=== PATIENT | male | born 1950 | race Caucasian/White ===

== ENCOUNTER 2022-07-19 15:32 | Outpatient (CLI) | payer MEDICARE ==
--- NOTE | 2022-07-19 16:17 | XRAY Report ---
PROCEDURE: Chest 2 View X-Ray INDICATIONS: MO TECHNIQUE: 2 views of the chest were acquired. COMPARISON: None. FINDINGS: Surgical changes and devices: None. Lungs and pleura: No pleural effusions or pneumothorax. Lungs are clear. COPD Mediastinum: Mediastinal contours are normal. Heart size is normal. Bones and chest wall: No suspicious bony abnormalities. Soft tissues appear unremarkable. IMPRESSION: No acute cardiopulmonary disease process. Reviewed by: Lucía Shah MD, PhD on 07/19/2022 4:16 PM PST Approved by: Lucía Shah MD, PhD on 07/19/2022 4:16 PM PST Station ID: [id number]
== END 2022-07-19 15:33 | disposition home or self-care (01) ==
LOC: DI 15:32
PROVIDERS: ATTEND Internal Medicine
DX: R06.09 Other forms of dyspnea (principal)

== ENCOUNTER 2022-08-12 13:57 | Emergency (ER) | payer MEDICARE ==
--- NOTE | 2022-08-12 14:31 | XRAY Report ---
PROCEDURE: Chest 1 View X-Ray INDICATIONS: Chest pain TECHNIQUE: One view of the chest was acquired. COMPARISON: Chest x-ray 07/19/2022 FINDINGS: Surgical changes and devices: None. Lungs and pleura: Lungs are hyperexpanded suggestive COPD. There is minimal blunting the costophreni c angles, unchanged likely related to scarring. Flattening of the hemidiaphragms are present bilatera lly. Mediastinum: Mediastinal contours appear normal. Heart size is normal. Bones and chest wall: No suspicious bony lesions. Overlying soft tissues appear unremarkable. IMPRESSION: No acute pulmonary process. Reviewed by: Cheyenne Hernandez MD on 08/12/2022 2:29 PM PDT Approved by: Cheyenne Hernandez MD on 08/12/2022 2:29 PM PDT Station ID: [id number]
[2022-08-12 14:52] LABS: BASOPHILS % (AUTO) 0.3 %; EOSINOPHILS % (AUTO) 0.3 %; HCT - HEMATOCRIT 46.2 % (42.0-52.0); HGB - HEMOGLOBIN 15.1 g/dL (14.0-18.0); LYMPHOCYTES # (AUTO) 0.6 10^3/uL (1.5-3.5); LYMPHOCYTES % (AUTO) 5.4 %; MEAN CORPUSCULAR HEMOGLOBIN 31.5 pg (27.0-31.0); MEAN CORPUSCULAR HGB CONC 32.7 g/dL (32.0-36.0); MEAN CORPUSCULAR VOLUME 96.3 fL (80.0-94.0); MEAN PLATELET VOLUME 9.1 fL (7.4-11.4); MONOCYTES # (AUTO) 0.8 10^3/uL (0.0-1.0); MONOCYTES % (AUTO) 6.5 %; NEUTROPHILS # (AUTO) 10.4 10^3/uL (1.5-6.6); NEUTROPHILS % (AUTO) 87.1 %; PLT - PLATELET COUNT 190 10^3/uL (130-450); RED CELL DISTRIBUTION WIDTH 12.4 % (12.0-15.0); WHITE BLOOD COUNT 11.9 x10^3/uL (4.8-10.8)
[2022-08-12 15:10] LABS: ALBUMIN 4.2 g/dL (3.2-5.5); ALBUMIN/GLOBULIN RATIO 1.4 (1.0-2.2); BILIRUBIN,TOTAL 2.7 mg/dL (0.2-1.0); CREATININE 0.9 mg/dL (0.6-1.2); POTASSIUM 4.3 mmol/L (3.5-5.0); TOTAL PROTEIN 7.1 g/dL (6.7-8.2)
--- NOTE | 2022-08-12 15:31 | ED Physician Documentation ---
History of Present Illness - Stated complaint Stated Complaint: CP/FEVER/NAUSEA - Chief complaint Chief Complaint: Cardiac - Additonal information Additional information: 72-year-old male comes to the emergency department for evaluation of fever up to 102 as well as nonradiating substernal chest pain and pressure that woke him up at 4 AM. He reports he is generally very healthy and active but today has felt like it is difficult to take a deep breath and sometimes it hurts. No history of hypertension or tobacco use. He does have a history of asthma for which he is on fluticasone. Rarely uses his albuterol. Also has a history of hyperlipidemia for which she is on lovastatin. Followed by Dr. Jd Lopez. He denies nausea or vomiting. Though he has had lack of appetite. No abdominal pain diarrhea or urinary symptoms. Review of Systems Constitutional: reports: Fever, Myalgias Eyes: reports: Reviewed and negative Cardiac: reports: Chest pain / pressure. denies: Palpitations, Pedal edema, Calf pain Respiratory: reports: Dyspnea GI: reports: Reviewed and negative : reports: Reviewed and negative Skin: reports: Reviewed and negative PD PAST MEDICAL HISTORY - Present Medications Home Medications: Ambulatory Orders Medication Instructions Recorded Confirmed Amox/Clav 875/125 [Augmentin] 1 each PO Q12H #14 tablet 08/12/22 Azithromycin [Zithromax] 0 mg PO DAILY #6 tablet 08/12/22 - Allergies Allergies/Adverse Reactions: Allergies Allergy/AdvReac Type Severity Reaction Status Date / Time No Known Drug Allergies Allergy Verified 08/12/22 14:19 PD ED PE NORMAL - General General: Alert and oriented X 3, No acute distress, Well developed/nourished - HEENT HEENT: Atraumatic, Moist mucous membranes - Neck Neck: Supple, no meningeal sign, No adenopathy - Cardiac Cardiac: RRR, No murmur, Strong equal pulses - Respiratory Respiratory: No respiratory distress, Clear bilaterally - Abdomen Abdomen: Normal bowel sounds, Soft - Back Back: No CVA TTP, No spinal TTP - Derm Derm: Normal color, Warm and dry, No rash - Extremities Extremities: No deformity, No tenderness to palpate, Normal ROM s pain - Neuro Neuro: Alert and oriented X 3, 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 Relevant findings are: Rate: Rate (enter#) (92) Rhythm: NSR [facility]: Normal Intervals: Normal TN. No: Prolonged QT QRS: Low voltage Ischemia: T wave inversion (V1-V2) Compare to prior EKG: Old EKG unavailable Computer interpretation: Agree with computer - Labs Labs: Laboratory Tests 08/12/22 08/12/22 08/12/22 14:45 14:45 14:45 WBC 11.9 H RBC 4.80 Hgb 15.1 Hct 46.2 MCV 96.3 H MCH 31.5 H MCHC 32.7 RDW 12.4 Plt Count 190 MPV 9.1 Neut # (Auto) 10.4 H Lymph # (Auto) 0.6 L [place] # (Auto) 0.8 Eos # (Auto) 0.0 Baso # (Auto) 0.0 Absolute Nucleated RBC 0.00 Nucleated RBC % 0.0 Sodium 135 Potassium 4.3 Chloride 101 Carbon Dioxide 26 Anion Gap 8.0 BUN 15 Creatinine 0.9 Estimated GFR (MDRD) 82 L Glucose 104 H Calcium 9.0 Total Bilirubin 2.7 H AST 27 ALT 26 Alkaline Phosphatase 64 Troponin I High Sens 4.9 Total Protein 7.1 Albumin 4.2 Globulin 2.9 Albumin/Globulin Ratio 1.4 Lipase 29 Nasal Adenovirus (PCR) Nasal B. parapertussis DNA (PCR) Nasal Coronavir 229E PCR Nasal Coronavir HKU1 PCR Nasal Coronavir NL63 PCR Nasal Coronavir OC43 PCR Nasal Enterovir/Rhinovir PCR Nasal Influenza B PCR Nasal Influenza A PCR Nasal Parainfluen 1 PCR Nasal Parainfluen 2 PCR Nasal Parainfluen 3 PCR Nasal Parainfluen 4 PCR Nasal RSV (PCR) Nasal B.pertussis DNA PCR Nasal C.pneumoniae (PCR) Javi Human Metapneumo PCR Nasal M.pneumoniae (PCR) Nasal SARS-CoV-2 (PCR) 08/12/22 15:30 WBC RBC Hgb Hct MCV MCH MCHC RDW Plt Count MPV Neut # (Auto) Lymph # (Auto) [place] # (Auto) Eos # (Auto) Baso # (Auto) Absolute Nucleated RBC Nucleated RBC % Sodium Potassium Chloride Carbon Dioxide Anion Gap BUN Creatinine Estimated GFR (MDRD) Glucose Calcium Total Bilirubin AST ALT Alkaline Phosphatase Troponin I High Sens Total Protein Albumin Globulin Albumin/Globulin Ratio Lipase Nasal Adenovirus (PCR) NOT DETECTED Nasal B. parapertussis DNA (PCR) NOT DETECTED Nasal Coronavir 229E PCR NOT DETECTED Nasal Coronavir HKU1 PCR NOT DETECTED Nasal Coronavir NL63 PCR NOT DETECTED Nasal Coronavir OC43 PCR NOT DETECTED Nasal Enterovir/Rhinovir PCR NOT DETECTED Nasal Influenza B PCR NOT DETECTED Nasal Influenza A PCR NOT DETECTED Nasal Parainfluen 1 PCR NOT DETECTED Nasal Parainfluen 2 PCR NOT DETECTED Nasal Parainfluen 3 PCR NOT DETECTED Nasal Parainfluen 4 PCR NOT DETECTED Nasal RSV (PCR) NOT DETECTED Nasal B.pertussis DNA PCR NOT DETECTED Nasal C.pneumoniae (PCR) NOT DETECTED Javi Human Metapneumo PCR NOT DETECTED Nasal M.pneumoniae (PCR) NOT DETECTED Nasal SARS-CoV-2 (PCR) NOT DETECTED - Rads (name of study) cxr Relevant Findings:: Final report received (No acute cardiopulmonary process) PD Medical Decision Making - ED course Complexity details: reviewed results, re-evaluated patient, considered differential, d/w patient ED course: 72-year-old male who has a past medical history most significant for hypertension, asthma and hyperlipidemia presents to the emergency department for evaluation of fever up to 102 and left-sided substernal chest pain and pressure that woke him from sleep at 4 AM. No history of similar. He denies any cough. No recent travel. Here in the emergency department he presents very well-appearing with unremarkable cardiopulmonary auscultation. No hypoxia. Chest x-ray is interpreted by both the radiologist myself shows no acute cardiopulmonary findings. An EKG is interpreted by myself also shows no ischemic findings and initial troponin is negative. Given that the duration of the symptoms is more than 12 hours. This is not likely acute coronary syndrome. Did obtain a CBC and electrolytes and per my interpretation no acute worrisome findings. WBC 11.9; non-specific in this setting. t-bili is 2.5. Patient reports he has been told he has an elevated bilirubin in the past but is unsure if he has Renteria Bears disease. No abdominal tenderness was elicited we will defer imaging of the abdomen at this time. Respiratory PCR panel was also negative. However given the fever I am clinically concerned For subclinical PE or even pneumonia given the lack of chest x-ray findings thus I did complete a CT pulmonary angiogram. The PE E study was negative for pulmonary embolism however it does show an unexpected finding of left upper lobe groundglass opacity most likely consistent with infection. Given this I discussed with the patient and his routine outpatient treatment for community-acquired pneumonia. Theref ore he will be started on Augmentin and azithromycin. Patient's curb 65 score is low making him appropriate for outpatient treatment. There was an incidental finding of a right upper lobe pulmonary nodule. This was also discussed with patient and his . They are recommended to have interval CT follow-up in 6 to 12 months for reevaluation. Patient is are discharged home in stable condition with the usual routine emergent return return precautions discussed Departure - Departure Disposition: 01 Home, Self Care Clinical Impression: Right upper lobe pulmonary nodule Left upper lobe pneumonia Qualifiers: Pneumonia type: due to unspecified organism Qualified Code(s): J18.9 - Pneumonia, unspecified organism Condition: Stable Record reviewed to determine appropriate education?: Yes Instructions: ED Pneumonia Adult Prescriptions: Amox/Clav 875/125 [Augmentin] 1 each PO Q12H #14 tablet Azithromycin [Zithromax] 0 mg PO DAILY #6 tablet Comments: Jorje landers came to the emergency department today because you woke up about 4 AM with left-sided substernal chest pain and pressure. He also had a fever up to 102. The EKG completed today in the emergency department does not show signs of a heart attack. Your labs were also essentially normal. However with the reported fever we did obtain a CT of your chest and do find that there is a left upper lobe groundglass opacity. This is most likely an early pneumonia. In order to treat this I would like you to fill the prescription for the antibiotics and take as directed for the next week. There was an incidental finding made of a right upper lobe pulmonary nodule. These are very common findings in the emergency department and are typically benign. Please discuss this with your primary care provider. You should have a repeat CT scan in 6 to 12 months to ensure stability. Return to the ER if you find you are having worsening symptoms, uncontrolled fevers difficulty breathing any bloody sputum, chest pain or fainting episodes
[2022-08-12] MEDS ORDERED: SODIUM CHLORIDE 0.9% 1,000 ML IV STA (15:44)
[2022-08-12 16:33] LABS: B. PARAPERTUSSIS- RESP PCR PAN NOT DETECTED; B. PERTUSSIS- RESP PCR PANEL NOT DETECTED; C. PNEUMONIAE- RESP PCR PANEL NOT DETECTED; CORONAVIRUS 229E-RESP PCR NOT DETECTED; CORONAVIRUS HKU1-RESP PCR NOT DETECTED; CORONAVIRUS NL63-RESP PCR NOT DETECTED; CORONAVIRUS OC43-RESP PCR NOT DETECTED; HUMAN METAPNEUMOVIRUS NOT DETECTED; INFLUENZA A- RESP PCR PANEL NOT DETECTED; INFLUENZA B - RESP PCR PANEL NOT DETECTED; M. PNEUMONIAE- RESP PCR PANEL NOT DETECTED; PARAINFLUENZA VIRUS 1 NOT DETECTED; PARAINFLUENZA VIRUS 2 NOT DETECTED; PARAINFLUENZA VIRUS 3 NOT DETECTED; PARAINFLUENZA VIRUS 4 NOT DETECTED; RHINOVIRUS/ENTEROVIRUS NOT DETECTED; RSV- RESP PCR PANEL NOT DETECTED; SARS-CoV-2 -RESP PCR PANEL NOT DETECTED
[2022-08-12] MEDS ORDERED: iohexoL-300 100 ML VIAL ONE (16:54)
--- NOTE | 2022-08-12 17:34 | CT Report ---
PROCEDURE: ANGIO CHEST W/WO INDICATIONS: chest pain, fever; ? PE CONTRAST: 1 TECHNIQUE: After the administration of intravenous contrast, 2 mm axial images were acquired from the pulmonary apices to the posterior costophrenic angles during the arterial phase. In addition, 1 mm lung kernel and 5 mm soft tissue kernel reconstructions were performed. 3-dimensional coronal oblique maximum int ensity projection (MIP) reformats, 8 mm axial MIP, and 5 mm coronal and sagittal MPR reformats were t hen performed through the thorax. For radiation dose reduction, the following was used: automated exp osure control, adjustment of mA and/or kV according to patient size. COMPARISON: Chest x-ray 08/12/2022 FINDINGS: Image quality: Excellent. Pulmonary arteries: Pulmonary arteries are normal in size, and demonstrate no intraluminal filling d efects to suggest central pulmonary embolism. Lungs and pleura: Lungs are hyperinflated suggestive of COPD. There is a focus of groundglass opacity identified in the left upper lobe measuring 4.3 x 3.0 cm. Right upper lobe nodule is present measuri ng 6 mm. Mediastinum: Heart size is normal, without pericardial effusion. No mediastinal or hilar a denopathy. Thoracic aorta is normal in caliber and enhancement. Esophagus is normal in caliber, wit hout hiatal hernia. Bones and chest wall: No suspicious bony lesions. Ribs and thoracic spine appear intact throughout. No axillary or supraclavicular adenopathy. The thyroid is normal in size and there are no incident al findings. Abdomen: Visualized upper abdominal solid organs appear normal in the early arterial phase of enhanc ement. IMPRESSION: No pulmonary embolism. Groundglass opacity in the left upper lobe suggestive of infection or inflammation. No priors are gisele ilable for comparison. Short interval imaging follow-up is recommended to document resolution and exc lude presence of underlying malignancy. Nonspecific 5 mm nodule in the right upper lobe. Recommend attention to this region on follow-up exam for above described round glass nodule. CLINICAL RECOMMENDATION STATEMENTS: In patients <35 years with an ITN detected on CT, MRI, or extrathyroidal ultrasound, the Committee re commends further evaluation with dedicated thyroid ultrasound if the nodule is "e1 cm and has no susp icious imaging features, and if the patient has normal life expectancy. In patients "e35 years with an ITN detected on CT, MRI, or extrathyroidal ultrasound, the Committee r ecommends further evaluation with dedicated thyroid ultrasound if the nodule is "e1.5 cm and has no s uspicious imaging features, and if the patient has normal life expectancy. (ACR, 2014) Reviewed by: Cheyenne Hernandez MD on 08/12/2022 5:33 PM PDT Approved by: Cheyenne Hernandez MD on 08/12/2022 5:33 PM PDT Station ID: [id number]
[2022-08-12 17:50] VITALS: BP 131/74
[2022-08-12] MEDS ORDERED: AMOX/CLAV 875 MG/125 MG TABLET PO STA (17:50)
[2022-08-12] MEDS ORDERED: AZITHROMYCIN 250 MG TABLET PO STA (17:51)
[2022-08-12] MEDS ORDERED: iohexoL-300 100 ML VIAL IVP ONE (19:00)
== END 2022-08-12 18:06 | disposition home or self-care (01) ==
LOC: ED 13:57
DX: J18.9 Pneumonia, unspecified organism (principal); R91.1 Solitary pulmonary nodule; E78.5 Hyperlipidemia, unspecified; Z20.822 Contact with and (suspected) exposure to COVID-19; Z79.899 Other long term (current) drug therapy
CPT/HCPCS: 36415; 71045; 71275; 80053; 83690; 84484; 85025; 87633; 93005; 99284; A9270; Q9967

== ENCOUNTER 2022-08-17 06:59 | Emergency (ER) | payer MEDICARE ==
[2022-08-17] MEDS ORDERED: SODIUM CHLORIDE 0.9% 1,000 ML IV STA (08:18)
[2022-08-17] MEDS ORDERED: KETOROLAC 30 MG/ML VIAL IVP STA (08:19)
[2022-08-17] MEDS ORDERED: DEXAMETHASONE 10 MG/ML VIAL IV STA (08:20)
[2022-08-17] MEDS ORDERED: ACETAMINOPHEN 325 MG TABLET PO STA (08:20)
[2022-08-17] MEDS ORDERED: IPRATROPIUM/ALBUTEROL 3 ML NEB INH STA (08:20)
--- NOTE | 2022-08-17 08:25 | ED Physician Documentation ---
History of Present Illness - Stated complaint Stated Complaint: COUGHING UP BLOOD/CHEST PX - Chief complaint Chief Complaint: Resp - History obtained from History obtained from: Patient, Family - Additonal information Additional information: The patient comes to the emergency department with chief complaint Of worsening chest pain and cough since yesterday. The patient states that he was seen about 5 days ago in emergency department and diagnosed with pneumonia. He states that he felt as though he was slowly improving between the antibiotics and using his albuterol inhaler and had improved to the point where he felt he did not need his inhaler anymore. However, yesterday around noon, he began to notice the development of a pain under his left breast area and this slowly increased to a sharp pain that is worse when he takes a deep breath. He states that since the pain started, it has begun to encompass a wider [place] around his breast and wraparound into his posterior left chest. He denies any recurrence of fever though he states his temperature is still 99, which is abnormal for him. The patient states that his cough seems a little worse and that he has coughed up some blood-tinged material couple of times. The patient states that he has not had any nausea or vomiting except for the first day he was started on antibiotics, when he vomited several hours after taking the antibiotics. He did try his inhaler again last night around 1:00 and states it actually helped him feel quite a bit better and that he had a better night sleep after that. No other complaints at this time. He does take Wixela for maintenance of his asthma. I did review his records and found that he had been worked up extensively with blood work, which showed a mildly elevated white blood cell count, chest x-ray which was negative, and a CTA of the chest, which showed a focal area of groundglass appearance in the left upper lobe. His respiratory PCR panel was negative. He was started on Augmentin and Zithromax, and given first doses in the emergency department. PD PAST MEDICAL HISTORY - Present Medications Home Medications: Ambulatory Orders Medication Instructions Recorded Confirmed Amox/Clav 875/125 [Augmentin] 1 each PO Q12H #14 tablet 08/12/22 08/17/22 Azithromycin [Zithromax] 0 mg PO DAILY #6 tablet 08/12/22 08/17/22 Fluticasone Propion/Salmeterol 1 inh INH DAILY 08/17/22 08/17/22 [Wixela 250-50 Inhub] Rosuvastatin Calcium [Crestor] 20 mg PO DAILY 08/17/22 08/17/22 - Allergies Allergies/Adverse Reactions: Allergies Allergy/AdvReac Type Severity Reaction Status Date / Time No Known Drug Allergies Allergy Verified 08/17/22 07:23 PD ED PE NORMAL - Vitals Vital signs reviewed: Yes - General General: Alert and oriented X 3, No acute distress, Well developed/nourished - HEENT HEENT: Atraumatic, PERRL, EOMI, Moist mucous membranes - Neck Neck: Supple, no meningeal sign - Cardiac Cardiac: RRR, No murmur, Strong equal pulses - Respiratory Respiratory: No respiratory distress, Clear bilaterally - Abdomen Abdomen: Soft, Non tender, Non distended - Derm Derm: Normal color, Warm and dry, No rash - Extremities Extremities: No deformity, No edema - Neuro Neuro: Alert and oriented X 3 - Psych Psych: Normal mood, Normal affect Results - Vitals Vitals: Oxygen O2 Source Room air - Labs Labs: Laboratory Tests 08/17/22 08/17/22 08/17/22 08:30 08:30 08:30 WBC 11.0 H RBC 4.57 L Hgb 14.2 Hct 43.1 MCV 94.3 H MCH 31.1 H MCHC 32.9 RDW 12.9 Plt Count 261 MPV 9.4 Neut # (Auto) 8.5 H Lymph # (Auto) 0.8 L [place] # (Auto) 1.3 H Eos # (Auto) 0.1 Baso # (Auto) 0.1 Absolute Nucleated RBC 0.00 Nucleated RBC % 0.0 Sodium 136 Potassium 3.8 Chloride 98 L Carbon Dioxide 27 Anion Gap 11.0 BUN 12 Creatinine 0.8 Estimated GFR (MDRD) 94 Glucose 127 H Lactic Acid 1.4 Calcium 8.6 Total Bilirubin 1.4 H AST 17 ALT 24 Alkaline Phosphatase 108 Total Protein 7.2 Albumin 3.0 L Globulin 4.2 Albumin/Globulin Ratio 0.7 L Lipase 25 - Rads (name of study) CXR Relevant Findings:: Final report received, See rad report (no significant change from prior study.) CT chest contrast Relevant Findings:: Final report received, See rad report (worsening cavitary lesion THA, worsening LLL infiltrate) PD Medical Decision Making - ED course Complexity details: reviewed old records, reviewed results, re-evaluated patient, considered differential, d/w patient, d/w family ED course: The pt was stable, but appeared uncomfortable and mildly dyspneic. This was reported to be a worsening, despite several days of abx, and I was concerned about this. He was worked up with CBC and ER abd panel, which were ordered and reviewed by me, and showed improvement in the WBC count to 11.0. However, the CXR looked worse on my eval, despite being read as unchanged. Given this and pt's worsening condition, I felt the pt should be evaluated with CT. This was done and showed a worsening of the cavitary lesion and pneumonia. I spoke with Dr. Matthews of infectious disease at [facility], and she was concerned about the cavitary lesion. As the pt is stable, she would like to have him come straight to her office for an evaluation at 1600, and she will decide if he can continue outpatient treatment or needs inpatient. I discussed this with the pt, who is feeling quite a bit better now, and he and his are agreeable to the plan. He has been given the address for the clinic. Departure - Departure Disposition: 01 Home, Self Care Clinical Impression: Cavitary pneumonia Condition: Stable Instructions: ED Pneumonia Adult Comments: Your CT scan shows significant worsening of your pneumonia since Monday. Given that you have been on a nearly full course of azithromycin and have a course of Augmentin, it is concerning that you have had this acute worsening. As such, your case has been discussed with Dr. Matthews, who is an infectious disease specialist over at [facility]. Given the morphology of your pneumonia, as well as the worsening despite an antibiotic regimen that should usually successfully treat pneumonia, she would like to see you urgently. She has requested that you come to her clinic this afternoon for a 4:00 appointment. Her clinic is located right across the street from [facility], at [address] [facility] in [place]. The number for the clinic is [phone]. Please let them know that you are there for a 4:[address] Matthews. Discharge Date/Time: 08/17/22 14:34
[2022-08-17 08:36] LABS: BASOPHILS # (AUTO) 0.1 10^3/uL (0.0-0.1); BASOPHILS % (AUTO) 0.9 %; EOSINOPHILS # (AUTO) 0.1 10^3/uL (0.0-0.7); EOSINOPHILS % (AUTO) 0.5 %; HCT - HEMATOCRIT 43.1 % (42.0-52.0); HGB - HEMOGLOBIN 14.2 g/dL (14.0-18.0); LYMPHOCYTES # (AUTO) 0.8 10^3/uL (1.5-3.5); LYMPHOCYTES % (AUTO) 7.5 %; MEAN CORPUSCULAR HEMOGLOBIN 31.1 pg (27.0-31.0); MEAN CORPUSCULAR HGB CONC 32.9 g/dL (32.0-36.0); MEAN CORPUSCULAR VOLUME 94.3 fL (80.0-94.0); MEAN PLATELET VOLUME 9.4 fL (7.4-11.4); MONOCYTES # (AUTO) 1.3 10^3/uL (0.0-1.0); MONOCYTES % (AUTO) 11.8 %; NEUTROPHILS # (AUTO) 8.5 10^3/uL (1.5-6.6); NEUTROPHILS % (AUTO) 76.7 %; PLT - PLATELET COUNT 261 10^3/uL (130-450); RED BLOOD COUNT 4.57 10^6/uL (4.70-6.10); RED CELL DISTRIBUTION WIDTH 12.9 % (12.0-15.0)
--- NOTE | 2022-08-17 08:38 | XRAY Report ---
PROCEDURE: Chest 1 View X-Ray INDICATIONS: chest pain TECHNIQUE: One view of the chest was acquired. COMPARISON: CT pulmonary angiogram 08/12/2022. CXR 08/12/2022. FINDINGS: Surgical changes and devices: None. Lungs and pleura: No pleural effusions or pneumothorax. Left upper lobe opacity is not significantly changed. Mediastinum: Mediastinal contours appear unchanged. Heart size is normal. Bones and chest wall: No suspicious bony lesions. Overlying soft tissues appear unremarkable. IMPRESSION: Left upper lobe opacity is not significant change. Favor pneumonia. Recommend follow-up to resolution. Reviewed by: Cruz Reyes MD on 08/17/2022 8:37 AM PDT Approved by: Cruz Reyes MD on 08/17/2022 8:37 AM PDT Station ID: [id number]
[2022-08-17 08:49] LABS: ALBUMIN/GLOBULIN RATIO 0.7 (1.0-2.2); BILIRUBIN,TOTAL 1.4 mg/dL (0.2-1.0); CALCIUM 8.6 mg/dL (8.5-10.3); CREATININE 0.8 mg/dL (0.6-1.2); POTASSIUM 3.8 mmol/L (3.5-5.0); TOTAL PROTEIN 7.2 g/dL (6.7-8.2)
[2022-08-17] MEDS ORDERED: iohexoL-300 100 ML VIAL ONE (09:18)
[2022-08-17] MEDS ORDERED: levoFLOXacin 250 MG TABLET PO STA (11:54)
--- NOTE | 2022-08-17 12:14 | CT Report ---
PROCEDURE: CHEST W INDICATIONS: worsening cough, pain, and CXR CONTRAST:100ml Omnipaque 300 TECHNIQUE: After the administration of intravenous contrast, 1 mm axial images were acquired from the pulmonary apices through the posterior costophrenic angles. Axial 5 mm soft tissue kernel reconstructions were performed as well as 8 mm axial MIP and coronal and sagittal 5 mm reformations. For radiation dose reduction, the following was used: automated exposure control, adjustment of mA and/or kV according to patient size. COMPARISON: 08/12/2022 FINDINGS: Image quality: Good Lungs and pleura:Increased lingular and left upper lobe superior segment consolidation, with increase d cavitation. No drainable pleural effusions. A solitary pulmonary nodule is seen in the right apex ( axial image 86 lung series) measuring 7 to 8 mm, possibly a granuloma as it is partially calcified. Mediastinum, heart, and esophagus: No hiatal hernia. Normal heart size. Coronary calcifications. Prom inent mediastinal hilar lymph nodes may be reactive in this clinical setting. Chest wall and thyroid: Unremarkable Upper abdomen: Separately dictated Bones: No acute or suspicious osseous finding. IMPRESSION: Increased left lung cavitary pneumonia. A solitary partially calcified pulmonary nodule is seen measu ring up to 8 mm at the right apex (lung series image 86), possibly a granuloma. Recommend short inter devin future surveillance imaging. Abdominal findings separately dictated. Reviewed by: Ken Amaral MD on 08/17/2022 12:13 PM PDT Approved by: Ken Amaral MD on 08/17/2022 12:13 PM PDT Station ID: [id number]
[2022-08-17 14:17] VITALS: BP 129/77
[2022-08-17] MEDS ORDERED: iohexoL-300 100 ML VIAL IVP ONE (14:32)
== END 2022-08-17 14:34 | disposition home or self-care (01) ==
LOC: ED 06:59
DX: J18.8 Other pneumonia, unspecified organism (principal); Z79.51 Long term (current) use of inhaled steroids
CPT/HCPCS: 36415; 80053; 83605; 83690; 85025; 94640; 96374; 99284